=== PATIENT | male | born 1990 | race African-American/Black ===

== ENCOUNTER 2020-07-08 16:40 | Emergency (ER) | payer OTHER ==
--- NOTE | 2020-07-08 17:38 | RAD ---
XR Hand Lt 3 View STANDARD History: Injury Comparison: None. Findings: The small finger is poorly interrogated on this exam due to focal flexion proximal interpha langeal joint and being at an angle due to the device used to rest the fingers. Remainder the fingers are unremarkable. Impression: Poor visualization of the small finger. Repeat dedicated finger radiographs of the injure d finger are recommended.
--- NOTE | 2020-07-08 18:08 | RAD ---
XR Finger(s) Lt Min 2 View History: Injury Comparison: Plain radiograph same day Findings: Abnormal medial soft tissue swelling along the proximal interphalangeal joint small finger. There is also a dorsal osseous avulsion of the distal interphalangeal joint which may reflect a terminal extensor insertion fracture. Benign periosteal reaction along the medial aspect proximal phalanx neck. Impression: 1. Likely terminal extensor tendon insertion avulsion from the distal phalanx base small finger. MRI recommended as well as orthopedic hand consultation. 2. Focal flexion deformity proximal phalangeal joint. 3. Benign-appearing periosteal bone formation along the medial aspect proximal phalanx neck.
== END 2020-07-08 18:30 ==
LOC: NAV ERS 16:40
DX: S56.498A Other injury of extensor muscle, fascia and tendon of left little finger at forearm level, initial encounter (principal); W23.0XXA Caught, crushed, jammed, or pinched between moving objects, initial encounter